=== PATIENT | male | born 1960 | race Hispanic/Latino ===

== ENCOUNTER 2022-11-28 11:14 | Emergency (ER) | payer SELFPAY ==
[2022-11-28] MEDS ORDERED: KEFLEX500 MG PO (14:24)
[2022-11-28] MEDS ORDERED: NAPROXEN500 MG PO (14:25)
== END 2022-11-28 11:40 | disposition left against medical advice (07) | DRG 951 ==
LOC: ED 11:14 → LWOBS 11:40
DX: Z53.21 Procedure and treatment not carried out due to patient leaving prior to being seen by health care provider (principal)

== ENCOUNTER 2022-11-28 11:56 | Emergency (ER) | payer OTHER ==
[~2022-11-28] VITALS: Ht 162.6 cm; Wt 75.4 kg
[2022-11-28] MEDS ORDERED: KEFLEX500 MG PO (14:24)
[2022-11-28] MEDS ORDERED: NAPROXEN500 MG PO (14:25)
[2022-11-28 14:31] VITALS: BP 152/89
== END 2022-11-28 14:44 | disposition home or self-care (01) | DRG 605 ==
LOC: ED 11:56
DX: S51.832A Puncture wound without foreign body of left forearm, initial encounter (principal); M25.522 Pain in left elbow; W22.8XXA Striking against or struck by other objects, initial encounter